=== PATIENT | male | born 1980 | race Caucasian/White ===

== ENCOUNTER 2020-11-14 07:27 | Day surgery (SDC) | payer OTHER ==
[2020-11-12 12:56] VITALS: BMI 32.5
[2020-11-14 07:52] VITALS: TEMP 98
[2020-11-14] MEDS ORDERED: LIDOCAINE HCL/PF 2% SDV 5ML VIAL ONE (07:57)
[2020-11-14] MEDS ORDERED: PROPOFOL 20 ML ONE ×3 (07:57)
[2020-11-14 09:14] VITALS: BP 116/82; PULSE 80
== END 2020-11-14 09:16 | disposition home or self-care (01) ==
LOC: FASU-ENDO 07:27
PROVIDERS: ATTEND Internal Medicine Gastroenterology
PROC: 0DBN8ZX Excision of Sigmoid Colon, Via Natural or Artificial Opening Endoscopic, Diagnostic (ICD-10-PCS; principal; 2020-11-14 08:21)
DX: Z12.11 Encounter for screening for malignant neoplasm of colon (principal); Z83.71 Family history of colonic polyps; D12.5 Benign neoplasm of sigmoid colon
CPT/HCPCS: 88305-TC